=== PATIENT | male | born 1995 | race Caucasian/White ===

== ENCOUNTER 2018-10-27 21:48 | Emergency (ER) | payer BC ==
[2018-10-27] MEDS ORDERED: Divalproex Sodium Delayed-Release 250 MG Tab.CR PO ONE ×2 (23:09→23:10)
--- NOTE | 2018-10-27 23:13 | EDM.PDOC ---
ED HPI GENERAL MEDICAL PROBLEM - General Chief Complaint: General Stated Complaint: NEEDS MEDS Time Seen by Provider: 10/27/18 23:08 Source of Information: Reports: Patient, RN Notes Reviewed History Limitations: Reports: No Limitations - History of Present Illness INITIAL COMMENTS - FREE TEXT/NARRATIVE: 23-year-old gentleman presents emergency department today requesting medications , he cannot afford them he also needs a ride to [employer] - Related Data Allergies Allergy/AdvReac Type Severity Reaction Status Date / Time ziprasidone [From Geodon] Allergy Hallucinati Verified 10/27/18 22:43 ons Home Meds: Home Meds Divalproex Sodium [Depakote] 500 mg PO BID 10/27/18 [History] Past Medical History Psychiatric History: Reports: ADHD, Anxiety, Bipolar, Panic Attack, PTSD - Past Surgical History GI Surgical History: Reports: Appendectomy Musculoskeletal Surgical History: Reports: Arthroscopic Knee Social & Family History - Tobacco Use Smoking Status *Q: Current Every Day Smoker Years of Tobacco use: 16 Packs/Tins Daily: 0.5 - Caffeine Use Caffeine Use: Reports: Coffee, Tea - Alcohol Use Days Per Week of Alcohol Use: 7 Number of Drinks Per Day: 2 Total Drinks Per Week: 14 - Recreational Drug Use Recreational Drug Use: Yes Recreational Drug Type: Reports: Marijuana/Hashish Recreational Drug Use Frequency: Daily ED ROS GENERAL - Review of Systems Review Of Systems: See Below Constitutional: Reports: No Symptoms HEENT: Reports: No Symptoms Respiratory: Reports: No Symptoms Cardiovascular: Reports: No Symptoms Neurological: Reports: Headache ED EXAM, GENERAL - Physical Exam Exam: See Below Exam Limited By: No Limitations General Appearance: Alert, WD/WN, No Apparent Distress Respiratory/Chest: No Respiratory Distress Course - Vital Signs Last Recorded V/S: Last Vital Signs Temp 97.7 F 10/27/18 22:44 Pulse 93 10/27/18 22:44 Resp 19 10/27/18 22:44 BP 132/67 10/27/18 22:44 Pulse Ox 99 10/27/18 22:44 - Orders/Labs/Meds Meds: Medications Discontinued Medications Generic Name Dose Route Start Last Admin Trade Name Freq PRN Reason Stop Dose Admin Divalproex Sodium 500 mg 10/27/18 23:09 Divalproex Sodium PO 10/27/18 23:10 ONETIME ONE Divalproex Sodium 500 mg 10/27/18 23:10 Divalproex Sodium PO 10/27/18 23:11 ONETIME ONE Departure - Departure Time of Disposition: 23:12 Disposition: Home, Self-Care 01 Condition: Poor Clinical Impression: Has run out of medications - Discharge Information Referrals: PCP,None [Primary Care Provider] - Additional Instructions: Recommend he follow-up with your [facility] perinatal social worker office for further assistance - Assessment/Plan Plan: Assessment Acuity = acute Site and laterality = needs medications Etiology = unknown etiology Manifestations = none] Location of injury = Home Lab values = none Plan Provided 500 mg Depakote now and 500 mg Depakote for in the morning recommend follow-up with his [facility] for perinatal social worker This note was dictated using [email or web address] voice recognition software please call with any questions on syntax or grammar.
== END 2018-10-27 23:24 | disposition home or self-care (01) ==
LOC: JP.ED 21:48
DX: Z76.0 Encounter for issue of repeat prescription (principal); Z88.8 Allergy status to other drugs, medicaments and biological substances; F90.9 Attention-deficit hyperactivity disorder, unspecified type; F17.210 Nicotine dependence, cigarettes, uncomplicated
CPT/HCPCS: 99281; A9270; 99282